=== PATIENT | female | born 1965 ===

== ENCOUNTER 2017-10-10 11:17 | Observation (INO) | payer OTHER, SELFPAY ==
[2017-09-21 10:17] VITALS: BMI 28.6
[2017-10-10] MEDS ORDERED: Midazolam 2 MG/2 ML VIAL ONE (12:55)
[2017-10-10] MEDS ORDERED: Propofol 10 mg/ml Inj (20 ML) ONE (12:55)
[2017-10-10] MEDS ORDERED: cefOXitin IV 2 gm in Dextrose 2 GM/50 ML BAG IVPB ONE (13:00)
[2017-10-10] MEDS ORDERED: Lactated Ringer's 1,000 ML IV ONE ×4 (13:15→15:58)
[2017-10-10] MEDS ORDERED: Neostigmine Methylsulfate 3mg/3ml Syringe IV ONE ×2 (14:51→15:27)
[2017-10-10] MEDS ORDERED: Clindamycin 2% Vaginal Cream(40 gm) ONE (15:28)
[2017-10-10] MEDS ORDERED: Methylene Blue 10 mg/mL(10ml) IV ONE (15:36)
[2017-10-10] MEDS ORDERED: Bupivacaine 0.25% 20 ML INJ IJ ONE (15:36)
[2017-10-10] MEDS ORDERED: Esmolol 100 mg/10ml Inj IV ONE (15:39)
[2017-10-10] MEDS ORDERED: Albuterol HFA 90 mcg/actuation (8 g) ONE (15:50)
--- NOTE | 2017-10-10 15:53 | PCM.SURG1 ---
Surgeon's Initial Post Op Note - Surgeon's Notes Surgeon: Dr. Yvette Perry Chartered Financial Analyst: Dr. Patti Whitten Type of Anesthesia: General Endo Pre-Operative Diagnosis: pelvic organ prolapse, MIRIAM Operative Findings: uterus approximately 9cm sized, pelvic organ prolapse Post-Operative Diagnosis: same Operation Performed: Total laparoscopic hysterectomy, BSO, cystoscopy Specimen/Specimens Removed: uterus, cervix, bilateral fallopian tubes and ovaries Estimated Blood Loss: EBL {In ML}: 200 Blood Products Given: N/A Drains Used: No Drains Post-Op Condition: Good Date of Surgery/Procedure: 10/10/17 Time of Surgery/Procedure: 13:45
[2017-10-10] MEDS ORDERED: Sodium Chloride 0.9% 1,000 ML IV SCH (16:00)
[2017-10-10] MEDS: HYDROmorphone 0.5 mg/0.5 ml ISec IVP PRN ×2 (16:15→17:13)
[2017-10-10] MEDS: cefOXitin IV 2 gm in Dextrose 2 GM/50 ML BAG IVPB SCH (21:24)
[2017-10-10] MEDS: Oxycodone/Acetaminophen 5/325 mg Tab PO PRN (21:42)
[2017-10-11] MEDS: cefOXitin IV 2 gm in Dextrose 2 GM/50 ML BAG IVPB SCH ×2 (05:04→13:23)
[2017-10-11 08:32] LABS: HEMOGLOBIN 11.1 g/dL (11.0-16.0); MEAN CELL VOLUME 87.2 fL (81.0-99.0); MEAN CORPUSCULAR HEMOGLOBIN 29.5 pg (27.0-31.0); MEAN CORPUSCULAR HGB CONC 33.9 g/dL (33.0-37.0); MEAN PLATELET VOLUME 7.8 fL (7.2-11.7); RBC 3.75 Mil/uL (3.80-5.20); RED CELL DISTRIBUTION WIDTH 14.1 % (11.5-14.5)
[2017-10-11 08:34] LABS: WHITE BLOOD COUNT 12.6 K/uL (4.8-10.8)
[2017-10-11 08:58] LABS: BLOOD UREA NITROGEN 12 mg/dL (7-17); CALCIUM 8.3 mg/dl (8.6-10.4); GFR AFRICAN-AMERICAN > 60; GFR NON-AFRICAN AMERICAN > 60
[2017-10-11] MEDS: Oxycodone/Acetaminophen 5/325 mg Tab PO PRN ×2 (09:50→18:07)
[2017-10-11 10:53] VITALS: O2SAT 96
[2017-10-11 17:25] VITALS: BP 96/61; PULSE 83; RESP 20; TEMP 97.4
--- NOTE | 2017-10-12 05:08 | OP ---
PROCEDURE DATE: 10/10/2017 SURGEON: Yvette Perry MD AUDIT CLERK SURGEON: Patti Whitten MD TYPE OF ANESTHESIA: General endotracheal. PREOPERATIVE DIAGNOSES: Pelvic organ prolapse, stress urinary incontinence, pelvic pain. INTRAOPERATIVE FINDINGS: Uterus approximately 9 cm sized, pelvic organ prolapse including cystocele and uterine prolapse. SPECIMENS REMOVED: Uterus, cervix, bilateral fallopian tubes and ovaries. ESTIMATED BLOOD LOSS: 200 mL. BLOOD PRODUCTS: There were no blood products given. DRAINS: There were no drains used. POSTOPERATIVE CONDITION: Good. ADDITIONAL COMMENTS: All lap counts and instrument counts were correct x2. DESCRIPTION OF PROCEDURE: After all relevant documentation was reviewed and signed by MD, the patient was taken back to the OR room. She was prepped and draped in the usual sterile fashion and was being placed in the lithotomy position. After draining Oliver catheter, a weighted speculum was introduced, and excellent visualization was obtained with the use of a right angle retractor. With the single-tooth tenaculum, the anterior lip of the cervix was then grasped, and the cervix was then serially dilated. The VCare device was then inserted. Attention was then placed to the abdomen where an umbilical 5-mm incision was made with the use of a scalpel. The laparoscope was then introduced into the intra-abdominal cavity under direct visualization. Once confirmed, we were inside the intra-abdominal cavity. Pneumoperitoneum was achieved, and bilateral lower quadrant 5-mm ports were based under direct visualization. Attention was then placed to the left ovary and fallopian tube where the IP ligament was then cauterized and cut with the use of LigaSure. Sequentially, the fallopian tube was then checked thereof. The round ligament was then also cauterized and then transected, and the anterior lip of the broad ligament was then dissected down. The bladder flap was created on the left side. The uterine arteries on the left were then skeletonized, and the uterine artery was then cauterized and transected. These steps were also performed on the right side. Once the uterine arteries bilaterally were transected all the way down to the cardinal ligaments as well, the colpotomy was then performed anteriorly and then continued in a circumferential fashion until the uterus and cervix were completely amputated. The speculum was then delivered vaginally, and the vaginal cuff was then reapproximated with several stitches of 0 Vicryl in a running locked fashion. From inside of the intra-abdominal cavity, persistent bleeding was noted from the vaginal cuff, and multiple layers of 0 Vicryl were then used in order to feel excellent hemostasis. Once hemostasis was achieved, FloSeal and Interceed were placed over the vaginal cuff. The pneumoperitoneum was then evacuated, and the ports were closed with the use of 3-0 Monocryl in a subcuticular fashion. The cystoscopy was then performed and bilateral ureteral jets were noted, and no damage to the bladder was observed. The cystoscope was then removed. Oliver catheter was reinserted, and vaginal pack was placed. The patient tolerated the procedure well and then was taken back to the recovery room in stable condition. Yvette Perry MD
== END 2017-10-11 20:30 | disposition home or self-care (01) ==
LOC: C.SDS 11:17 → MERGE 15:46 → C.4M 15:46
PROVIDERS: ADMIT Obstetrics & Gynecology; ATTEND Obstetrics & Gynecology
DX: N81.4 Uterovaginal prolapse, unspecified (principal); N39.3 Stress incontinence (female) (male); N81.89 Other female genital prolapse
CPT/HCPCS: 36415; 58552; 80048; 85027; 86850; 86900; 88307; C2615; G0378; J0694; J1170; J1885; J2250; J2405; J2704; J2710; J3010; J7120